=== PATIENT | male | born 1965 | race African-American/Black ===

== ENCOUNTER 2018-01-14 13:50 | Emergency (ER) | payer OTHER ==
[2018-01-14] MEDS ORDERED: NS 0.9% 1000 ML* 1,000 ML IV ONE (14:06)
[2018-01-14] MEDS ORDERED: Ondansetron INJ* 2 MG/ML VIAL IV ONE (14:06)
[2018-01-14 14:28] LABS: ABS Basophils 0 10^3/ul (0-0.2); ABS Eosinophils 0 10^3/ul (0-0.6); ABS Lymphocytes 0.7 10^3/ul (1.0-4.8); ABS Monocytes 0.4 10^3/ul (0-0.8); ABS Neutrophils 5.7 10^3/ul (1.5-7.7); ABS Nucleated RBC 0 10^3/ul; Eosinophil % 0.2 % (0-6); Hematocrit 42 % (42-52); Hemoglobin 14.4 g/dl (14.0-18.0); Lymphocyte % 10.6 % (25-47); Mean Corpuscular HGB Conc 34 g/dl (31-36); Mean Corpuscular Hemoglobin 30 pg (27-31); Mean Corpuscular Volume 88 fL (80-94); Mean Platelet Volume 7.6 um3 (7.4-10.4); Nucleated Red Blood Cells % 0; Platelet Count 317 10^3/ul (150-450); Red Blood Count 4.84 10^6/ul (4.00-5.40); Red Cell Distribution Width 14 % (10.5-15); White Blood Count 6.9 10^3/ul (3.5-10.8)
[2018-01-14 14:55] LABS: EGFR Non-African American 61.9 (>60)
[2018-01-14 15:20] LABS: Urine Appearance Clear; Urine Blood 1+ (Negative); Urine Color Yellow; Urine Ketones Negative (Negative); Urine Protein Negative (Negative); Urine Red Blood Cell 1+(3-5/hpf) (Absent); Urine Specific Gravity 1.013 (1.010-1.030); Urine Urobilinogen Negative (Negative); Urine White Blood Cell Trace(0-5/hpf) (Absent)
--- NOTE | 2018-01-14 15:23 | RAD ---
HISTORY: abdominal pain COMPARISONS: None VIEWS: Frontal supine and upright views of the abdomen. FINDINGS: BOWEL: There is a nonobstructive bowel gas pattern. There is a large amount of stool within the colon. CALCULI: There are no abnormal calculi. BONES AND SOFT TISSUES: There are no osseous abnormalities. OTHER FINDINGS: The lung bases are clear. There is no subphrenic gas. IMPRESSION: NONOBSTRUCTIVE BOWEL GAS PATTERN. LARGE AMOUNT OF STOOL WITHIN THE COLON.
--- NOTE | 2018-01-14 15:26 | ED ---
Abdominal Pain/Male - HPI Summary HPI Summary: This is [facility] Hansen documenting for attending Chase Avilez MD. Patient is a 52 y/o M w/ epigastric abdominal pain. Pain is not reported to radiate. On triage, pain is rated 7/10. Patient states he has been nauseous and has vomited these past two days. He reports fever and dizziness as well. EKG changes were noted at senior care facility, patient received 325 ASA. Patient has past medical history of constipation, HTN, diabetes, HLD, MCTD, gastroparesis, and polymyositis. He reports PSHx for bowl obstruction removal this year. Nothing is reported to aggravate/alleviate Sx. Home medications and allergies are reviewed. - History of Current Complaint Chief Complaint: EDAbdPain Stated Complaint: ABD/CHEST PAIN Time Seen by Provider: 01/14/18 14:01 Hx Obtained From: Patient Onset/Duration: Lasting Days - onset 2 days ago Timing: Constant Severity Currently: Severe Pain Intensity: 7 Pain Scale Used: 0-10 Numeric - 7/10 Location: Epigastric Radiates: No Aggravating Factor(s): Nothing Alleviating Factor(s): Nothing Associated Signs And Symptoms: Positive: Fever, Dizzy, Nausea, Vomiting - Allergies/Home Medications Allergies/Adverse Reactions: Allergies Allergy/AdvReac Type Severity Reaction Status Date / Time No Known Allergies Allergy Verified 01/14/18 13:58 Home Medications: Home Medications Calcium Polycarbophil TAB* [Fibercon TAB*] 1 tab PO BID 01/14/18 [History Confirmed 01/14/18] Cetirizine* [ZyrTEC 10 MG TAB*] 10 mg PO DAILY 01/14/18 [History Confirmed 01/14] Cholecalciferol (Vitamin D3) [Vitamin D3] 1 cap PO DAILY 01/14/18 [History Confirmed 01/14/18] Fluticas/Salmet 115/21 HFA(NF) [Advair HFA 115/21 (NF)] 1 puff INH BID 01/14/18 [History Confirmed 01/14/18] Glucose ORAL* [Glutose*] 1 tube PO SEE INSTRUCTIONS PRN 01/14/18 [History Confirmed 01/14/18] Metoclopramide TAB* [Reglan TAB*] 10 mg PO TID PRN 01/14/18 [History Confirmed 01/14/18] Omeprazole CAP* [Prilosec CAP* 20 MG] 20 mg PO BID 01/14/18 [History Confirmed 01/14/18] Simethicone TAB* [Mylicon TAB*] 1 tab PO TID 01/14/18 [History Confirmed ] raNITIdine HCl [Zantac] 1 tab PO DAILY 01/14/18 [History Confirmed 01/14/18] PMH/Surg Hx/FS Hx/Imm Hx Endocrine/Hematology History: Reports: Hx Diabetes, Other Endocrine/ Hematological Disorders - HLD Cardiovascular History: Reports: Hx Hypertension GI History: Reports: Other GI Disorders - gastroparesis Musculoskeletal History: Reports: Other Musculoskeletal History - polymyositis, MCTD Sensory History: Denies: Hx Legally Blind - Surgical History Surgery Procedure, Year, and Place: bowel obstruction removal, 2018 Infectious Disease History: No Infectious Disease History: Denies: Traveled Outside the [place] in Last 30 Days - Family History Known Family History: Negative: Blood Disorder Review of Systems Positive: Fever Positive: Abdominal Pain - epigastric , Vomiting, Nausea Neurological: Other - dizziness All Other Systems Reviewed And Are Negative: Yes Physical Exam - Summary Physical Exam Summary: VITAL SIGNS: Reviewed. GENERAL: Patient is a well-developed and nourished male who is lying comfortable in the stretcher. Patient is not in any acute respiratory distress. HEAD AND FACE: Normocephalic and atraumatic. EYES: PERRLA, EOMI x 2, No injected conjunctiva. EARS: Hearing grossly intact. Ear canals and tympanic membranes are WNL. MOUTH: Oropharynx within normal limits. NECK: Supple, trachea is midline, no adenopathy, no JVD. CHEST: Symmetric, no tenderness at palpation LUNGS: Clear to auscultation bilaterally. No wheezing or crackles. CVS: RRR, S1 and S2 present, no murmurs or gallops appreciated. ABDOMEN: Soft, non-tender. No signs of distention. Positive bowel sounds in the upper abdomen, lower abdomen has decreased sounds. No rebound no guarding, and no masses palpated. No abdominal bruit or pulsations. EXTREMITIES: FROM in all major joints, no edema, no cyanosis or clubbing. NEURO: Alert and oriented x 3. No acute neurological deficits. Speech is normal. SKIN: Dry and warm Triage Information Reviewed: Yes Vital Signs On Initial Exam: Initial Vitals Temp Pulse Resp BP Pulse Ox 97.9 F 70 14 167/109 100 01/14/18 13:54 01/14/18 13:54 01/14/18 13:54 01/14/18 13:54 01/14/18 13:54 Vital Signs Reviewed: Yes Diagnostics - Vital Signs Vital Signs Temp Pulse Resp BP Pulse Ox 01/14/18 13:54 97.9 F 70 14 167/109 100 - Laboratory Lab Results: Lab Results 01/14/18 01/14/18 01/14/18 Range/Units 14:20 14:20 14:20 WBC 6.9 (3.5-10.8) 10^3/ul RBC 4.84 (4.00-5.40) 10^6/ul Hgb 14.4 (14.0-18.0) g/dl Hct 42 (42-52) % MCV 88 (80-94) fL MCH 30 (27-31) pg MCHC 34 (31-36) g/dl RDW 14 (10.5-15) % Plt Count 317 (150-450) 10^3/ul MPV 7.6 (7.4-10.4) um3 Neut % (Auto) 82.0 (38-83) % Lymph % (Auto) 10.6 L (25-47) % Mercer % (Auto) 6.5 (0-7) % Eos % (Auto) 0.2 (0-6) % Baso % (Auto) 0.7 (0-2) % Absolute Neuts (auto) 5.7 (1.5-7.7) 10^3/ul Absolute Lymphs (auto) 0.7 L (1.0-4.8) 10^3/ul Absolute Monos (auto) 0.4 (0-0.8) 10^3/ul Absolute Eos (auto) 0 (0-0.6) 10^3/ul Absolute Basos (auto) 0 (0-0.2) 10^3/ul Absolute Nucleated RBC 0 10^3/ul Nucleated RBC % 0 Sodium 140 (135-145) mmol/L Potassium 4.3 (3.5-5.0) mmol/L Chloride 105 (101-111) mmol/L Carbon Dioxide 27 (22-32) mmol/L Anion Gap 8 (2-11) mmol/L BUN 15 (6-24) mg/dL Creatinine 1.22 H (0.67-1.17) mg/dL Est GFR ( Amer) 74.9 (>60) Est GFR (Non-Af Amer) 61.9 (>60) BUN/Creatinine Ratio 12.3 (8-20) Glucose 90 (70-100) mg/dL Lactic Acid 1.5 (0.5-2.0) mmol/L Calcium 9.9 (8.6-10.3) mg/dL Magnesium 1.9 (1.9-2.7) mg/dL Total Bilirubin 0.50 (0.2-1.0) mg/dL AST 20 (13-39) U/L ALT 14 (7-52) U/L Alkaline Phosphatase 74 (34-104) U/L C-Reactive Protein 7.91 (<8.01) mg/L B-Natriuretic Peptide ( - 100) pg/mL Total Protein 8.7 (6.4-8.9) g/dL Albumin 4.5 (3.2-5.2) g/dL Globulin 4.2 H (2-4) g/dL Albumin/Globulin Ratio 1.1 (1-3) Lipase 18 (11.0-82.0) U/L Urine Color Urine Appearance Urine pH (5-9) Ur Specific [place] (1.010-1.030) Urine Protein (Negative) Urine Ketones (Negative) Urine Blood (Negative) Urine Nitrate (Negative) Urine Bilirubin (Negative) Urine Urobilinogen (Negative) Ur Leukocyte Esterase (Negative) Urine WBC (Auto) (Absent) Urine RBC (Auto) (Absent) Urine Bacteria (Absent) Urine Glucose (Negative) 01/14/18 01/14/18 Range/Units 14:20 14:42 WBC (3.5-10.8) 10^3/ul RBC (4.00-5.40) 10^6/ul Hgb (14.0-18.0) g/dl Hct (42-52) % MCV (80-94) fL MCH (27-31) pg MCHC (31-36) g/dl RDW (10.5-15) % Plt Count (150-450) 10^3/ul MPV (7.4-10.4) um3 Neut % (Auto) (38-83) % Lymph % (Auto) (25-47) % Mercer % (Auto) (0-7) % Eos % (Auto) (0-6) % Baso % (Auto) (0-2) % Absolute Neuts (auto) (1.5-7.7) 10^3/ul Absolute Lymphs (auto) (1.0-4.8) 10^3/ul Absolute Monos (auto) (0-0.8) 10^3/ul Absolute Eos (auto) (0-0.6) 10^3/ul Absolute Basos (auto) (0-0.2) 10^3/ul Absolute Nucleated RBC 10^3/ul Nucleated RBC % Sodium (135-145) mmol/L Potassium (3.5-5.0) mmol/L Chloride (101-111) mmol/L Carbon Dioxide (22-32) mmol/L Anion Gap (2-11) mmol/L BUN (6-24) mg/dL Creatinine (0.67-1.17) mg/dL Est GFR ( Amer) (>60) Est GFR (Non-Af Amer) (>60) BUN/Creatinine Ratio (8-20) Glucose (70-100) mg/dL Lactic Acid (0.5-2.0) mmol/L Calcium (8.6-10.3) mg/dL Magnesium (1.9-2.7) mg/dL Total Bilirubin (0.2-1.0) mg/dL AST (13-39) U/L ALT (7-52) U/L Alkaline Phosphatase (34-104) U/L C-Reactive Protein (<8.01) mg/L B-Natriuretic Peptide 148 H ( - 100) pg/mL Total Protein (6.4-8.9) g/dL Albumin (3.2-5.2) g/dL Globulin (2-4) g/dL Albumin/Globulin Ratio (1-3) Lipase (11.0-82.0) U/L Urine Color Yellow Urine Appearance Clear Urine pH 5.0 (5-9) Ur Specific [place] 1.013 (1.010-1.030) Urine Protein Negative (Negative) Urine Ketones Negative (Negative) Urine Blood 1+ A (Negative) Urine Nitrate Negative (Negative) Urine Bilirubin Negative (Negative) Urine Urobilinogen Negative (Negative) Ur Leukocyte Esterase Negative (Negative) Urine WBC (Auto) Trace(0-5/hpf) (Absent) Urine RBC (Auto) 1+(3-5/hpf) A (Absent) Urine Bacteria Absent (Absent) Urine Glucose Negative (Negative) Result Diagrams: 01/14/18 14:20 01/14/18 14:20 Lab Statement: Any lab studies that have been ordered have been reviewed, and results considered in the medical decision making process. - Radiology Abdomen X-ray Xray Interpretation: No Acute Changes Radiology Interpretation Completed By: Radiologist - Nonobstructive bowel gas pattern. Large amount of stool within the colon. 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 Bibasilar airspace disease is noted in the lung joyner right worse than left which may represent bibasilar pneumonia. Normal appendix. This report was reviewed by ED physician. - EKG 1446 Cardiac Rate: NL - Rate is 78 BPM EKG Rhythm: Sinus Rhythm ST Segment: Normal - no ST elevations Ectopy: PVCs - multiple EKG Interpretation: RBBB Re-Evaluation - Re-Evaluation First Eval Re-Evaluation Time: 20:00 Comment: Discussed findings with the patient. Abdominal Pain Fem Course/Dx - Course Assessment/Plan: This patient is a 52-year-old male who presents to the emergency room via [facility] with a chief complaint of having nausea vomiting and abdominal pain. As per patient the patient is being having multiple episodes of nausea and vomiting unable to keep anything by mouth. The patient also is having diffuse abdominal pain but worse in the upper abdomen. The patient has past medical history significant for gastroparesis, polymyositis, MCTD, on chronic steroids, and small bowel obstruction. Initially the patient was given IV fluids and Zofran for the nausea and vomiting. Blood test results without any significant abnormality except for creatinine of 1.22, BMP of 148 and urinalysis is negative for UTI. Abdominal x-ray impression by radiology: Non- obstructive bowel gas pattern. Large amount of stool within the colon. Because of the history of the gastroparesis and small bowel obstruction and abdominal surgery I decided to do an abdominopelvic CT. Abdominopelvic CT impression made radiology: Localized dissection of the infrarenal abdominal aorta just above the aortic bifurcation. Right, iliac artery aneurysm measuring up to 1 0.3 cm is noted. I discussed the case with Dr. Bailon vascular neurosurgeon and Dago Vitale he recommends no follow-up with a vascular surgeon at this point. The findings are minimal and not significant. Therefore since there is no abnormal findings except for increased stool in the colon I will recommend for the patient to take MiraLAX, increase the water intake, fruits and vegetables and a follow-up with the primary care physician. Patient will also can take Zofran or Reglan for nausea and vomiting as needed. Patient is hemodnamically stable alert and oriented 3. I discussed all the findings and test results with the patient. Patient was instructed to return to the emergency room immediately if any of the symptoms return or worsens. They were explained the possibility of an early abdominal pathology which was not detected at this time despite the physical exam and testing. They understand and agree. Abdominal exam before discharge: Soft, NT. No signs of distention. BS present. No rebound no guarding, and no masses palpated. Patient is alert and oriented and hemodynamically stable. Patient is to follow up with primary care physician in the next 2 to 3 days. Patient agree and understands. - Diagnoses Differential Diagnosis/HQI/PQRI: Abdominal Aortic Aneurysm, Bowel Obstruction, Constipation, Diverticulitis, Renal Colic, Testicular Torsion, Urinary Tract Infection Provider Diagnoses: Acute abdominal pain, Nausea & vomiting - Provider Notifications Discussed Care Of Patient With: Urban Bailon Time Discussed With Above Provider: 19:38 Instructed by Provider To: Other - Dr. Bailon from [facility] was consulted at 19:38. He recommends no follow-up with a vascular surgeon at this point. The findings are minimal and not significant. Discharge - Sign-Out/Discharge Documenting (check all that apply): Patient Departure - Discharge Plan Condition: Stable Disposition: [facility]/COURT Patient Education Materials: Acute Nausea and Vomiting (ED), Acute Abdominal Pain (ED) Referrals: Trinh HUNT,Flavio Leiva [Primary Care Provider] - 3 Days Additional Instructions: Return to ED for any new or worsening symptoms.
[2018-01-14] MEDS ORDERED: Iodixanol* (CONTRAST) 320 MG/ML 100 ML SDV IV ONE (15:38)
--- NOTE | 2018-01-14 18:07 | RAD ---
Indication: Abdominal pain. Contrast: Administered 125.1 ml of VISAPAQUE 320 mg/ml CT of the abdomen and pelvis was performed after oral and IV contrast administration. Coronal and sagittal reconstructed images were obtained. Lung bases demonstrate right basilar airspace disease suggestive of pneumonia. There may be some infiltrate in the left base consistent with infiltrate as well. The heart demonstrates no pericardial effusion. Liver is normal in size. No focal lesions or intrahepatic duct dilatation is noted. The gallbladder demonstrates no calcified gallstones. No pericholecystic fluid or wall thickening is identified. The spleen is normal in size. The pancreas demonstrates no mass or pancreatic duct dilatation. The common duct is not dilated. No adrenal lesions are noted. The kidneys demonstrate symmetric nephrograms without hydronephrosis. No retroperitoneal lymphadenopathy is noted. No dilated loops of bowel are noted. CT of the pelvis demonstrates focal localized dissection in the infrarenal abdominal aorta just above aortic bifurcation. This extends into mild aneurysmal dilatation of the right common iliac artery measuring up to 13 mm. The remainder of the external iliac artery are otherwise unremarkable. No dilated loops of bowel are noted. The colon is filled with stool. The appendix is visualized and is unremarkable. The urinary bladder is unremarkable. The prostate and seminal vesicles are unremarkable. No evidence of bowel obstruction is noted. Degenerative disc disease at L4-L5 is noted. No fracture is noted. 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 Bibasilar airspace disease is noted in the lung joyner right worse than left which may represent bibasilar pneumonia. Normal appendix.
[2018-01-14 20:04] VITALS: BP 176/112
== END 2018-01-14 20:09 ==
LOC: ED 13:50
DX: R10.13 Epigastric pain (principal); R11.2 Nausea with vomiting, unspecified; I72.3 Aneurysm of iliac artery; I45.10 Unspecified right bundle-branch block; I10 Essential (primary) hypertension; E11.9 Type 2 diabetes mellitus without complications; E78.5 Hyperlipidemia, unspecified; K31.84 Gastroparesis; M33.20 Polymyositis, organ involvement unspecified; M35.1 Other overlap syndromes
CPT/HCPCS: 36415; 74019; 74177; 80053; 81003; 81015; 83605; 83690; 83735; 83880; 85025; 86140; 87086; 93005; 96361; 96374; 99284; J2405; Q9967

== ENCOUNTER 2018-01-15 16:21 | Observation (INO) | payer OTHER ==
[2018-01-15] MEDS ORDERED: NS 0.9% 1000 ML* 1,000 ML IV ONE (16:23)
--- NOTE | 2018-01-15 16:32 | ED ---
HPI Chest Pain - HPI Summary HPI Summary: This is [facility] documenting for attending Gunnar Avilez MD. Pt is a 52 y/o M c/o CP onset. Pain is rated a 7/10 and is described as pressure. Assoc Sx: Nausea, Diaphoresis, CP. Denies: abd pain, SOB, vomiting. Patient was seen yesterday for abdominal pain and was worked up but was found to be (-). - History of Current Complaint Time Seen by Provider: 01/15/18 16:23 Hx Obtained From: Patient, EMS Current Severity: Moderate Pain Intensity: 7 Pain Scale Used: 0-10 Numeric Chest Pain Location: Mid Sternal Chest Pain Radiates: No Character: Pressure/Squeezing - pressure Associated Signs and Symptoms: Positive: Chest Pain, Diaphoresis, Nausea. Negative: Shortness of Breath, Abdominal Pain, Vomiting - Allergy/Home Medications Allergies/Adverse Reactions: Allergies Allergy/AdvReac Type Severity Reaction Status Date / Time No Known Allergies Allergy Verified 01/14/18 13:58 PMH/Surg Hx/FS Hx/Imm Hx Endocrine/Hematology History: Reports: Hx Diabetes, Other Endocrine/ Hematological Disorders - HLD Cardiovascular History: Reports: Hx Hypertension GI History: Reports: Other GI Disorders - gastroparesis Musculoskeletal History: Reports: Other Musculoskeletal History - polymyositis, MCTD Sensory History: Denies: Hx Legally Blind Opthamlomology History: Denies: Hx Legally Blind - Surgical History Surgery Procedure, Year, and Place: bowel obstruction removal, 2018 - Family History Known Family History: Negative: Blood Disorder - Social History Occupation: Unemployed Lives: [facility] Alcohol Use: None Substance Use Type: Reports: None Smoking Status (MU): Never Smoked Tobacco Review of Systems Positive: Skin Diaphoresis Positive: Chest Pain - pressure Negative: Shortness Of Breath Positive: Nausea. Negative: Abdominal Pain, Vomiting All Other Systems Reviewed And Are Negative: Yes Physical Exam - Summary Physical Exam Summary: Physical Exam Summary: VITAL SIGNS: Reviewed. GENERAL: Patient is a well-developed and nourished male who is lying comfortable in the stretcher. Patient is not in any acute respiratory distress. HEAD AND FACE: Normocephalic and atraumatic. EYES: PERRLA, EOMI x 2, No injected conjunctiva. EARS: Hearing grossly intact. Ear canals and tympanic membranes are WNL. MOUTH: Oropharynx within normal limits. NECK: Supple, trachea is midline, no adenopathy, no JVD. CHEST: Symmetric, no tenderness at palpation LUNGS: Clear to auscultation bilaterally. No wheezing or crackles. CVS: RRR, S1 and S2 present, no murmurs or gallops appreciated. ABDOMEN: Soft, non-tender. No signs of distention. Positive bowel sounds in the upper abdomen, lower abdomen has decreased sounds. No rebound no guarding, and no masses palpated. No abdominal bruit or pulsations. EXTREMITIES: FROM in all major joints, no edema, no cyanosis or clubbing. NEURO: Alert and oriented x 3. No acute neurological deficits. Speech is normal. SKIN: Dry and warm Triage Information Reviewed: Yes Vital Signs Reviewed: Yes Diagnostics - Laboratory Result Diagrams: 01/15/18 16:45 01/15/18 16:45 Lab Statement: Any lab studies that have been ordered have been reviewed, and results considered in the medical decision making process. - Radiology CXR Xray Interpretation: Positive (See Comments) - IMPRESSION: Linear densities at the bilateral lung bases could be due to atelectasis or early interstitial lung disease. Radiology Interpretation Completed By: Radiologist - Provider has reviewed report - EKG 1650 Cardiac Rate: NL - 71 bpm Ectopy: PVCs EKG Interpretation: 71 bpm w sinus arrhythmia, with RBBB and PVC's Chest Pain Course/Dx - Course Assessment/Plan: This patient is a 52-year-old male who presents to the emergency room after he was transferred from [address] [place] [address] with a chief complaint of chest pressure, diaphoresis, nausea and vomiting. The patient was seen yesterday in the emergency department for abdominal pain. Today he is complaining of chest pressure. Patient has past medical history of constipation, HTN, diabetes, HLD, MCTD, gastroparesis, and polymyositis. He reports PSHx for bowel obstruction. Nothing is reported to aggravate/alleviate Sx. Home medications and allergies are reviewed. Blood test results without any significant abnormality except for slight decrease a hemoglobin and hematocrit. Troponin is 0.08, BNP is 178. Urinalysis is negative for UTI. Chest x-ray impression: linear densities at the hilar lung base could be due to atelectasis or any interstitial lung disease. In the ER course the patient was given aspirin, nitroglycerin and Lopressor and his symptoms improved. At this point I discussed the case with and Dr. Rae was the kalsominer on-call and he will consult for this patient. I also discussed the case with Dr. Mckeon from the hospitalist services who will be admitting the patient to the telemetry for further workup and management. The patient is hemodynamically stable alert and oriented 3 and at this time the patient is chest pain-free. - Chest Pain Differential Diagnosis/HQI/PQRI: Acute CT, ACS, Angina, CHF, Chest Wall, GI Disease, Lower Respiratory Infection - Diagnoses Provider Diagnoses: Chest pain, Elevated troponin - Provider Notifications Discussed Care Of Patient With: Stew Rae - Cardiology Time Discussed With Above Provider: 15:00 Instructed by Provider To: Other - Provider consulted with Dr. Rae from Cardiology. He will consult for the patient. Discharge - Sign-Out/Discharge Documenting (check all that apply): Patient Departure - Discharge Plan Condition: Stable Disposition: ADMITTED TO [facility] Referrals: Trinh HUNT,Flavio Leiva [Primary Care Provider] - - Billing Disposition and Condition Condition: STABLE Disposition: Admitted to [facility]
[2018-01-15] MEDS ORDERED: Aspirin TAB* 325 MG PO ONE (16:53)
[2018-01-15] MEDS ORDERED: Metoprolol Tartrate TAB* 25 MG PO ONE (16:53)
[2018-01-15 16:54] LABS: ABS Basophils 0 10^3/ul (0-0.2); ABS Eosinophils 0 10^3/ul (0-0.6); ABS Lymphocytes 0.9 10^3/ul (1.0-4.8); ABS Monocytes 0.6 10^3/ul (0-0.8); ABS Neutrophils 4.1 10^3/ul (1.5-7.7); ABS Nucleated RBC 0 10^3/ul; Eosinophil % 0.5 % (0-6); Hematocrit 39 % (42-52); Hemoglobin 13.4 g/dl (14.0-18.0); Lymphocyte % 16.6 % (25-47); Mean Corpuscular HGB Conc 34 g/dl (31-36); Mean Corpuscular Hemoglobin 30 pg (27-31); Mean Corpuscular Volume 87 fL (80-94); Mean Platelet Volume 7.6 um3 (7.4-10.4); Nucleated Red Blood Cells % 0; Platelet Count 307 10^3/ul (150-450); Red Blood Count 4.46 10^6/ul (4.00-5.40); Red Cell Distribution Width 15 % (10.5-15); White Blood Count 5.6 10^3/ul (3.5-10.8)
[2018-01-15] MEDS ORDERED: Nitroglycerin 2% OINT* 1 GM PAK TOPICAL ONE (16:54)
[2018-01-15] MEDS ORDERED: Nitroglycerin TAB 0.4 MG* 0.4 MG TAB SL ONE (16:54)
[2018-01-15 17:14] LABS: EGFR Non-African American 66.3 (>60)
--- NOTE | 2018-01-15 17:24 | RAD ---
INDICATION: Chest pain COMPARISON: CT the abdomen and pelvis dated January 14, 2018 TECHNIQUE: Single AP portable view of the chest was obtained. FINDINGS: Image quality is compromised due to the relative inferiority of a portable chest x-ray. The heart and mediastinum exhibit normal size and contour. At the lung bases there is intralobular thickening and faint linear densities that appear to correspond to the interstitial density seen on the previous day CT. More superiorly the lungs are adequately aerated. Visualized bones are normal for the patient's age. IMPRESSION: Linear densities at the bilateral lung bases could be due to atelectasis or early interstitial lung disease.
[2018-01-15 17:38] LABS: Urine Appearance Clear; Urine Blood 1+ (Negative); Urine Color Yellow; Urine Ketones Negative (Negative); Urine Protein Negative (Negative); Urine Red Blood Cell Trace(0-2/hpf) (Absent); Urine Specific Gravity 1.009 (1.010-1.030); Urine Urobilinogen Negative (Negative); Urine White Blood Cell Trace(0-5/hpf) (Absent)
[2018-01-15] MEDS ORDERED: Ondansetron INJ* 2 MG/ML VIAL IV PRN (19:43)
[2018-01-15] MEDS ORDERED: Albuterol 2.5 MG/3 ML NEB.SOL* (0.083%) INH PRN (19:43)
[2018-01-15] MEDS ORDERED: Acetaminophen TAB* 325 MG PO PRN (19:43)
[2018-01-15] MEDS ORDERED: Morphine INJ* 2 MG/ML 1 ML SYRINGE (TWO MG - NEW SYRINGE VERSION) IV PRN (19:43)
[2018-01-15] MEDS ORDERED: Magnesium Hydroxide LIQ* 30 ML UDC PO PRN (19:43)
[2018-01-15] MEDS ORDERED: Al Hydrox/Mg Hydrox/Simet LIQ* 30 ML UDC PO PRN (19:43)
[2018-01-15] MEDS ORDERED: NS 0.9% 1000 ML* 1,000 ML IV SCH (19:45)
[2018-01-15] MEDS ORDERED: Metoclopramide TAB* 10 MG PO PRN (19:49)
[2018-01-15] MEDS ORDERED: Nitroglycerin TAB 0.4 MG* 0.4 MG TAB SL PRN (19:56)
[2018-01-15] MEDS: Omeprazole CAP* 20 MG PO SCH (21:52)
[2018-01-15] MEDS: Mometasone/Formoter 100/5 MDI INH SCH (22:34)
--- NOTE | 2018-01-16 01:35 | HP ---
ADMISSION HISTORY AND PHYSICAL: DATE OF ADMISSION/SURGERY: 01/15/18 PRIMARY CARE PHYSICIAN: Gladys Avila DO from [facility] ATTENDING HOSPITALIST: Bushra Soni MD * (DICTATED BY KEIRA DE LA ROSA) CHIEF COMPLAINT: Chest pain. HISTORY OF PRESENT ILLNESS: Mr. Saleem is a 52-year-old gentleman who carries a past medical history significant for acid reflux disease, history of polio myositis, and history of bowel obstruction, for which he had surgery at [facility] approximately 2 years ago, who presented to the emergency room for the second time today with complaints of chest pain. The patient initially presented yesterday with complaints of epigastric pain. He has history of peptic ulcer disease, acid reflux as well as bowel surgery that was done 2 years ago. He reports associated nausea, but that eventually resolved. He had laboratory workup and a CT scan of the abdomen and pelvis that revealed no significant abnormality for which he was discharged back to [facility] yesterday. Today, he returned to the emergency room with complaints of substernal chest pain that does not radiate anywhere else with associated perfuse diaphoresis, and nausea. He reports that pain is different than his initial presentation yesterday. He reports that pain started while he was resting and denied any pain with exertion, shortness of breath, or wheezing. He does carry history of asthma and seasonal allergies as well for which he takes inhalers and Zyrtec. He had laboratory workup in the emergency room today that revealed normal CBC, but noted to have elevated troponin at [facility] earlier today with a value of 0.09. His troponin was repeated in the emergency room 6 hours later and was noted to be slightly declining at 0.08. A third troponin was drawn just shortly before admission and the results are pending at this time. He also had an EKG done that revealed new onset of right bundle-branch block and questioned left axis deviation. There were no definite ST changes, but given his age presentation, we were asked to see the patient for further evaluation and to consider admission to telemetry to rule out acute coronary syndrome. PAST MEDICAL HISTORY: As mentioned above, significant for: 1. Asthma and seasonal allergies. 2. GERD. 3. History of bowel obstruction in the past. 4. Polio myositis for which he was on prednisone for a period of time. PAST SURGICAL HISTORY: Significant for exploratory laparotomy with probable lysis of adhesion back in 2016, at [facility], I do not have an operative note available, however, the patient tells me that there was no bowel resection done. He also had a left hip surgery in the remote past. CURRENT MEDICATIONS: His medication list includes: 1. Calcium tablets 625 mg 1 p.o. b.i.d. 2. Zyrtec 10 mg p.o. daily. 3. Vitamin D3 1 cap 1000 units p.o. daily. 4. Advair HFA 115/21 one puff MDI inhaled b.i.d. 5. Glucose 15 g tube as needed for hypoglycemia. 6. Reglan 10 mg p.o. t.i.d. 7. Omeprazole 20 mg p.o. b.i.d. 8. Zantac 150 mg p.o. daily. 9. Simethicone 80 mg chewable 1 tablet p.o. t.i.d. ALLERGIES: He has no known drug allergies. SOCIAL HISTORY: The patient is an inmate who resides at [facility]. He is and has a daughter that lives with his ex - in [facility]. He listed his mom, Tahlia Saleem, as his healthcare proxy carrier and that he wishes to be a full code. He is a non-smoker who has never drink alcohol and denies illicit drug use. FAMILY HISTORY: He denies any family history of hypertension or coronary artery disease. REVIEW OF SYSTEMS: See HPI, otherwise 14-point review of systems were evaluated , were essentially negative. PHYSICAL EXAMINATION GENERAL: He is a healthy-appearing, middle aged gentleman in no acute distress or discomfort at the time of admission. VITAL SIGNS: Revealed blood pressure of 154/98, heart rate of 67, temperature of 98.4, respirations of 18 with O2 sat of 100% on room air. HEENT: Head is normocephalic, atraumatic. Sclerae anicteric. PERRLA. EOM's intact. Oropharynx is pink and moist. NECK: Supple. Trachea midline. No cervical adenopathy, thyromegaly, or JVD. LUNGS: Clear to auscultation bilaterally. HEART: Regular rate and rhythm. Normal S1 and S2 without rubs, murmurs, or gallops. BACK: Normal curvature, no CVA tenderness. ABDOMEN: Soft, nontender, and nondistended. There is a midline scar from prior surgery noted with no evidence of incisional hernia, masses, or hepatosplenomegaly. EXTREMITIES: Without cyanosis, clubbing, or edema. RECTAL EXAM: Deferred at this time. NEUROLOGIC: Grossly intact. He is awake, alert, and oriented x3. DIAGNOSTIC STUDIES/LAB DATA: CBC with white count of 5600, hemoglobin 13.4, hematocrit 39, and platelets 307. His D-dimer was less than 200. Chemistry panel with sodium of 140, potassium 4.2, chloride 104, CO2 28, BUN of 12 and creatinine of 1.15. His lactic acid was 1.6. LFTs within normal limits. Troponin as mentioned above, first draw earlier today at 0.09 and second was 0.18, third draw is pending at this time. BNP slightly elevated at 179. TSH is 0.98. ACCESSORY DIAGNOSTIC DATA: EKG revealed sinus arrhythmia with ventricular rate in mid 60s as well as multiple premature complexes, also evidence of right bundle- branch block, possible axis deviation to the left. There were no ST changes noted. Chest x-ray with linear densities to bilateral lung bases, likely atelectasis or early interstitial lung disease. There was no evidence of acute cardiopulmonary disease. IMPRESSION: A 52-year-old gentleman with past medical history significant for polio myositis, asthma, and seasonal allergies, who presented to the emergency room for the second day in a row with complaints of substernal chest pain with associated nausea and diaphoresis and found to have EKG changes as well as elevated troponin for which he will be admitted to telemetry unit for the following. ASSESSMENT AND PLAN: 1. Chest pain. The patient will be observed at the telemetry unit overnight. I went on and discussed with him the rationale behind his admission. He continued to have elevated troponin, however, it appears to be trending down and will continue to evaluate him for this. We will provide supplemental oxygen as needed; however, he denies any shortness of breath and has maintained good oxygen saturation. We also have noticed some occasional drop in his QRS complexes, however, there was no significant evidence of second degree heart block; however, I will obtain a repeat EKG tonight and we will repeat it tomorrow morning. I have reviewed the emergency room provider note and it appears like he has already contacted Dr. Rae for consultation and made arrangements for him to be seen tomorrow. The patient has never been diagnosed with any hypertension and never had his cholesterol checked. However, I feel he carries more risk factors for coronary artery disease for which we will proceed with nuclear stress test in the morning and I will keep him n.p.o. after midnight. I will also add his lipid panel to his troponin and baseline labs in the morning. 2. History of asthma and seasonal allergies. He appears to be stable from respiratory standpoint with no evidence of exacerbation. I will maintain him on his inhalers and add albuterol nebulizer as needed if he gets short of breath and continue his Zyrtec. 3. History of polio myositis, appears to be stable at this time. 4. History of gastroparesis and small bowel obstruction. Again, CT scan done yesterday in the ED revealed no evidence of bowel obstruction and the patient continued to have bowel movements, most recently this morning. I will keep him on his Reglan regimen and evaluate him for any possible abdominal pain, which has been not an issue today. 5. Gastroesophageal reflux disease. I will maintain him on his Omeprazole and Zantac as prescribed to him at the correctional facility. 6. DVT prophylaxis. The patient scored 2 points making him a moderate risk for deep venous thrombosis and I will provide him with SCD for the time being. 7. Code status. He is a full code. 8. Disposition. Admits to telemetry for close observation, repeat EKG and troponin, proceed with nuclear stress test in the morning to rule out acute coronary syndrome. TIME SPENT: Approximately 60 minutes was spent admitting this patient, was greater than 50% taking history and performing physical exam. I went on and discussed the case with Dr. Bushra Soni, who agreed to a plan of care. KEIRA DE LA ROSA [id number]/[facility] #: [id number] LIV
[2018-01-16] MEDS: Mometasone/Formoter 100/5 MDI INH SCH ×2 (07:53→20:09)
[2018-01-16] MEDS: Omeprazole CAP* 20 MG PO SCH (08:06)
[2018-01-16] MEDS ORDERED: Cetirizine* 10 MG TAB PO SCH (09:00)
[2018-01-16] MEDS ORDERED: Famotidine TAB* 20 MG PO SCH (09:00)
[2018-01-16 10:02] LABS: EGFR Non-African American 66.3 (>60)
[2018-01-16 10:05] LABS: ABS Basophils 0 10^3/ul (0-0.2); ABS Eosinophils 0 10^3/ul (0-0.6); ABS Lymphocytes 1.5 10^3/ul (1.0-4.8); ABS Monocytes 0.7 10^3/ul (0-0.8); ABS Neutrophils 2.6 10^3/ul (1.5-7.7); ABS Nucleated RBC 0 10^3/ul; Hematocrit 39 % (42-52); Hemoglobin 13.5 g/dl (14.0-18.0); Lymphocyte % 30.5 % (25-47); Mean Corpuscular HGB Conc 34 g/dl (31-36); Mean Corpuscular Hemoglobin 30 pg (27-31); Mean Corpuscular Volume 88 fL (80-94); Mean Platelet Volume 7.5 um3 (7.4-10.4); Nucleated Red Blood Cells % 0.1; Platelet Count 278 10^3/ul (150-450); Red Cell Distribution Width 14 % (10.5-15); White Blood Count 4.9 10^3/ul (3.5-10.8)
[2018-01-16] MEDS ORDERED: Regadenoson* 0.4 MG/5 ML SYRINGE ONE (13:10)
--- NOTE | 2018-01-16 14:17 | RAD ---
Edited for charges. INDICATION: Chest pain. COMPARISON: There are no prior studies available for comparison. Technique: A single day myocardial perfusion stress study was performed. Initially the resting study was performed. The patient was given an intravenous injection of 10.6 mCi of technetium 99m tetrofosmin and and the heart was imaged in multiple projections. The patient returned later in the day and under the direction of Dr. Mckenna, the patient was given intervenous injection of Lexiscan. Subsequently the patient was given intravenous injection of 25.2 mCi of technetium 99m tetrofosmin and the heart was imaged in multiple projections. The patient was unable to be positioned for the attenuation corrected images limiting the study. Images were reconstructed in the axial, sagittal and coronal planes and in a 3- D format. FINDINGS: There appears to be hypokinesis in the septum. The left ventricular ejection fraction is calculated to be 61%. The transiting ischemic dilatation ratio is abnormally elevated at 1.32 raising the possibility of multivessel coronary artery disease. No significant focal perfusion defects are seen on the post pharmacologic stress images. There is a large area of decreased activity in the inferior wall on the resting images. The results of this exam were discussed with the referring clinician. IMPRESSION: ELEVATED TRANSIENT ISCHEMIC DILATATION RATIO SUGGESTING THE POSSIBILITY OF MULTIVESSEL CORONARY ARTERY DISEASE. NO FOCAL MYOCARDIAL PERFUSION DEFECTS ARE SEEN AFTER PHARMACOLOGIC STRESS. MTDD
[2018-01-16 15:37] VITALS: BP 146/86
--- NOTE | 2018-01-16 16:29 | PN ---
Subjective Date of Service: 01/16/18 Interval History: see transfer note Objective Active Medications: Acetaminophen (Tylenol Tab*) 650 mg PO Q4H PRN PRN Reason: FEVER/PAIN Al Hydrox/Mg Hydrox/Simethicone (Maalox Plus*) 30 ml PO Q6H PRN PRN Reason: INDIGESTION Albuterol (Ventolin 2.5 Mg/3 Ml Neb.Cassandra*) 2.5 mg INH [id number] AWAKE PRN PRN Reason: sob/wheezing Cetirizine HCl (Zyrtec*) 10 mg PO DAILY [facility]; Protocol Last Admin: 01/16/18 08:06 Dose: 10 mg Famotidine (Pepcid Tab*) 20 mg PO DAILY [facility]; Protocol Last Admin: 01/16/18 08:06 Dose: 20 mg Magnesium Hydroxide (Milk Of Magnmindi Liq*) 30 ml PO Q4H PRN PRN Reason: CONSTIPATION Metoclopramide HCl (Reglan Tab*) 10 mg PO TID PRN PRN Reason: NAUSEA/VOMITING Mometasone Furoate/Formoterol Fumar (Dulera 100/5 Mdi*) 2 puff INH BID [facility] Last Admin: 01/16/18 07:53 Dose: 2 puff Morphine Sulfate (Morphine Inj ((Syringe))*) 2 mg IV Q4H PRN PRN Reason: PAIN - MILD Nitroglycerin (Nitroglycerin Tab 0.4 Mg*) 0.4 mg SL Q5M PRN PRN Reason: ANGINA Last Admin: 01/16/18 03:38 Dose: 0.4 mg Omeprazole (Prilosec Cap*) 20 mg PO BID [facility] Last Admin: 01/16/18 08:06 Dose: 20 mg Ondansetron HCl (Zofran Inj*) 4 mg IV Q4H PRN PRN Reason: NAUSEA/VOMITING Vital Signs - 8 hr 01/16/18 01/16/18 11:30 15:24 Temperature 99.0 F 98.2 F Pulse Rate 70 69 Respiratory 16 Rate Blood Pressure 152/79 146/86 (mmHg) O2 Sat by Pulse 100 100 Oximetry Oxygen Devices in Use Now: None Appearance: 52 yo chronically ill male A+O x3 in NAD - poor historian Eyes: No Scleral Icterus, PERRLA Neck: NL Appearance and Movements; NL JVP Respiratory: Symmetrical Chest Expansion and Respiratory Effort, Clear to Auscultation Cardiovascular: NL Sounds; No Murmurs; No JVD, RRR, No Edema Abdominal: NL Sounds; No Tenderness; No Distention Extremities: No Edema, No Clubbing, Cyanosis Skin: No Rash or Ulcers, No Nodules or Sclerosis Neurological: Alert and Oriented x 3 Lines/Tubes/Other Access: Clean, Dry and Intact Peripheral IV Nutrition: Taking PO's Result Diagrams: 01/16/18 09:50 01/16/18 08:50 Assess/Plan/Problems-Billing Assessment: 52 yo male with PMH of polio myositis, asthma, gastroparesis, seasonal allergies who presented to the ER with c/o chest pain with associated nausea and diaphoresis (presented the day before with abdominal pain found to have a aortic dissection) - Patient Problems (1) Chest pain Comment: - No evidence of ACS - cardiac nuclear stress test (chemical) - radiologist read abnormal scan however Dr. Yeung read the images and states it is a normal stress test. Troponins stable - 0.08, 0.07, 0.07, 0.08 EKG - NSR, normal interval, RBB, LAD, [id number] PAC, several non-conducted P waves that appear to be from sinus node - appreciate cardiology consult - concern for conduction system disease - please see Dr. Rodriguez consulted note from 01/16/2018 (2) Gastroparesis Comment: continue reglan (3) GERD (gastroesophageal reflux disease) Comment: PPI Status and Disposition: Please see transfer summary for full details.
[2018-01-16] MEDS ORDERED: amLODIPine TAB* 5 MG PO ONE (16:49)
--- NOTE | 2018-01-16 17:01 | CONSULT ---
Subjective Date of Service: 01/16/18 Interval History: Admission Date: 01/15/18 Consult Date 01/16/2018 PRIMARY CARE PHYSICIAN: Gladys Avila DO from [facility]: Hospitalist CHIEF COMPLAINT: GI symptom, sharp lower chest pain Reason for consult: Same, abnormal EKG HISTORY OF PRESENT ILLNESS: Mr. Saleem is a 52-year-old incarcerated man with a history of MTCD/polymyositis followed at [facility]. He tells me about 2 years ago abnormalities of his heart were detected and felt possibly related to the connective tissue disease. They were concerned about him having surgery but he did have surgery and tells me has had no further evaluation cardiac canchola since then. He had been on on chronic prednisone He tells me he uses a wheelchair and inhaler due to exertional dyspnea and passing out. He was admitted with sweating, eye swelling and vomiting which he states was prior flare symptoms. Also with sharp intermittent epigastric/lower costal pain. He states BP has been elevated last few weeks but ok prior to that. PAST MEDICAL HISTORY: A 1. Asthma and seasonal allergies. 2. GERD. 3. History of bowel obstruction in the past. 4. 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 It appears there is GI, Pulmonary, and ? cardiac involvement (no records available) PAST SURGICAL HISTORY: Abdominal surgery 2016 He also had a left hip surgery in the remote past. ALLERGIES: He has no known drug allergies. SOCIAL HISTORY: The patient is an inmate who resides at [facility]. He is and has a daughter that lives with his ex- in [facility]. He listed his mom, Thalia Saleem, as his healthcare proxy carrier and that he wishes to be a full code. He is a non-smoker who has never drink alcohol and denies illicit drug use. FAMILY HISTORY: He denies any family history of hypertension or coronary artery disease. Medications Active Medications: Acetaminophen (Tylenol Tab*) 650 mg PO Q4H PRN PRN Reason: FEVER/PAIN Al Hydrox/Mg Hydrox/Simethicone (Maalox Plus*) 30 ml PO Q6H PRN PRN Reason: INDIGESTION Albuterol (Ventolin 2.5 Mg/3 Ml Neb.Cassandra*) 2.5 mg INH [id number] AWAKE PRN PRN Reason: sob/wheezing Amlodipine Besylate (Norvasc Tab*) 10 mg PO ONCE ONE Stop: 01/16/18 16:50 Cetirizine HCl (Zyrtec*) 10 mg PO DAILY [facility]; Protocol Last Admin: 01/16/18 08:06 Dose: 10 mg Famotidine (Pepcid Tab*) 20 mg PO DAILY [facility]; Protocol Last Admin: 01/16/18 08:06 Dose: 20 mg Magnesium Hydroxide (Milk Of Magnesia Liq*) 30 ml PO Q4H PRN PRN Reason: CONSTIPATION Metoclopramide HCl (Reglan Tab*) 10 mg PO TID PRN PRN Reason: NAUSEA/VOMITING Mometasone Furoate/Formoterol Fumar (Dulera 100/5 Mdi*) 2 puff INH BID [facility] Last Admin: 01/16/18 07:53 Dose: 2 puff Morphine Sulfate (Morphine Inj ((Syringe))*) 2 mg IV Q4H PRN PRN Reason: PAIN - MILD Nitroglycerin (Nitroglycerin Tab 0.4 Mg*) 0.4 mg SL Q5M PRN PRN Reason: ANGINA Last Admin: 01/16/18 03:38 Dose: 0.4 mg Omeprazole (Prilosec Cap*) 20 mg PO BID [facility] Last Admin: 01/16/18 08:06 Dose: 20 mg Ondansetron HCl (Zofran Inj*) 4 mg IV Q4H PRN PRN Reason: NAUSEA/VOMITING Home Medications: Calcium Polycarbophil TAB* [Fibercon TAB*] 1 tab PO BID 01/14/18 [History Confirmed 01/15/18] Cetirizine* [ZyrTEC 10 MG TAB*] 10 mg PO DAILY 01/14/18 [History Confirmed 01/15] Cholecalciferol (Vitamin D3) [Vitamin D3] 1 cap PO DAILY 01/14/18 [History Confirmed 01/15/18] Fluticas/Salmet 115/21 HFA(NF) [Advair HFA 115/21 (NF)] 1 puff INH BID 01/14/18 [History Confirmed 01/15/18] Glucose ORAL* [Glutose*] 1 tube PO SEE INSTRUCTIONS PRN 01/14/18 [History Confirmed 01/15/18] Metoclopramide TAB* [Reglan TAB*] 10 mg PO TID PRN 01/14/18 [History Confirmed 01/15/18] Omeprazole CAP* [Prilosec CAP* 20 MG] 20 mg PO BID 01/14/18 [History Confirmed 01/15/18] Simethicone TAB* [Mylicon TAB*] 1 tab PO TID 01/14/18 [History Confirmed ] raNITIdine HCl [Zantac] 1 tab PO DAILY 01/14/18 [History Confirmed 01/15/18] Review of Systems - Measurements Intake and Output: Intake and Output Last 24 Hours 01/14/18 01/15/18 01/16/18 01/17/18 06:59 06:59 06:59 06:59 Intake Total 1440 990 Output Total 325 400 Balance 1115 590 Weight 212 lb 3.2 oz Intake: IV Fluids 1000 990 Oral 440 0 Output: Urine 325 400 Other: # Bowel Movements 0 0 - Review of Systems Constitutional Symptoms: Positive: Weakness, Fatigue Dermatology: Negative: Rash, Skin Lesions HEENT: Negative: Change in Hearing, Vertigo Eyes: Negative: Change in Vision, Double Vision Thyroid: Negative: Constipation, Palpitations Pulmonary: Positive: Shortness of Breath Negative: Respiratory Distress Cardiology: Positive: Chest Pain, Shortness of Breath, Syncope Negative: Palpitations, Swelling of Ankles, Peripheral Vascular Dis, Edema, Faintness, Claudication, Paroxysmal Nocturnal Dyspnea, Orthopnea Gastroenterology: Positive: Abdominal Pain, Nausea, Vomiting Negative: Blood in Stools, Change in Bowel Habits, Haematemesis Genital - Urinary: Negative: Dysuria, Hematuria Musculoskeletal: Negative: Joint Pain, Joint Stiffness Endocrinology: Negative: Obesity, Diabetes, Polydipsia, Polyuria Hematologic/Lymphatic: Negative: Use of Anticoagulant, Use of Antiplatelet Drugs Neurology: Negative: Diplopia, Dizziness, Change in Speech, Change in Sphincter Function Psychiatry: Negative: Unusual Anxiety, Suicidal Ideation Allergic/Immunologic: Positive: Immunocompromise Negative: Hx HIV Review of Systems Statement: All other review of systems negative, unless stated above. Objective Vital Signs: Temp Pulse Resp BP Pulse Ox 98.2 F 69 16 146/86 100 01/16/18 15:24 01/16/18 15:24 01/16/18 15:24 01/16/18 15:24 01/16/18 15:24 Oxygen Devices in Use Now: None Appearance: nad, pleasant Neck: NL Appearance and Movements; NL JVP, Trachea Midline Respiratory: Symmetrical Chest Expansion and Respiratory Effort, Clear to Auscultation Cardiovascular: NL Sounds; No Murmurs; No JVD, RRR, No Edema Abdominal: NL Sounds; No Tenderness; No Distention Extremities: No Edema Skin: No Rash or Ulcers Neurological: Alert and Oriented x 3 Laboratory Results: 01/16/18 09:50 01/16/18 08:50 Total Bilirubin 0.40 mg/dL (0.2-1.0) 01/15/18 16:45 AST 17 U/L (13-39) 01/15/18 16:45 ALT 12 U/L (7-52) 01/15/18 16:45 Alkaline Phosphatase 65 U/L (34-104) 01/15/18 16:45 CK-MB (CK-2) 5.6 ng/mL (0.6-6.3) 01/15/18 16:45 B-Natriuretic Peptide 179 pg/mL (-100) H 01/15/18 16:45 Total Protein 7.8 g/dL (6.4-8.9) 01/15/18 16:45 Albumin 4.0 g/dL (3.2-5.2) 01/15/18 16:45 Globulin 3.8 g/dL (2-4) 01/15/18 16:45 Albumin/Globulin Ratio 1.1 (1-3) 01/15/18 16:45 Triglycerides 158 mg/dL 01/16/18 08:50 Cholesterol 211 mg/dL 01/16/18 08:50 LDL Cholesterol 149 mg/dL 01/16/18 08:50 HDL Cholesterol 30.0 mg/dL 01/16/18 08:50 TSH 0.98 mcIU/mL (0.34-5.60) 01/15/18 16:45 01/15/18 01/15/18 01/15/18 16:45 19:31 22:07 Troponin I 0.08 H* 0.07 H* 0.07 H* 01/16/18 08:50 Troponin I 0.08 H* Diagnostic Imagin01/14/2018 CT scan: localized dissection infrarenal abdominal aorta just above bifurcation that extends into 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 I think his conduction system disease and stable detectable troponin could be related to underlying MCTD/polymyositis which he has a history of. He does relate to me a history of exertional syncope. He does have what is described as a small dissection of the descending aorta which could be causing his pain. I reviewed his lexiscan NM stress test. The TID index was elevated by calculation but this was likely due to poor quality resting images. Qualitatively there is no TID. The stress perfusion and LVEF is normal. It is a normal stress test. He is being transferred to [facility] for a suspected connective tissue disease flare and vascular surgery consult. I would also recommend an EP consult. Avoid rate lower agents/beta- blockers for now. At this very moment he is without pain, norvasc can be used to treat his blood pressure for now. Recommendations discussed with Deanne Parson NP Thank you for allowing me to participate in the cardiovascular care of this patient. Please do not hesitate to contact me with questions or concerns.
[2018-01-16] MEDS ORDERED: Iodixanol* (CONTRAST) 320 MG/ML 100 ML SDV IV ONE (17:47)
--- NOTE | 2018-01-16 18:32 | RAD ---
STUDY: CT angiography of the chest, abdomen and pelvis. INDICATION: Chest pain in a patient reporting a type B aortic dissection. COMPARISON: CT abdomen pelvis January 14, 2018 TECHNIQUE: Multidetector CT angiography of the chest, abdomen and pelvis were obtained from the lung apices to the ischial tuberosities after the intravenous injection of 100 mL of Visipaque 320. Reformats were created in the coronal and sagittal planes. 3-D vascular imaging was created from the source images and reviewed as well. ANGIOGRAPHIC FINDINGS: There are no filling defects of the centrilobular pulmonary arteries to indicate acute pulmonary embolus. There is no pathologic dilatation of the thoracic aorta. There is no dissection of the thoracic aorta. Branch vessels off of the abdominal aorta appear adequately patent. At the infrarenal right of midline aorta is a dissection flap that extends to just above the level of the bifurcation. There is aneurysmal dilatation of the right common iliac artery measuring up to 1.3 cm in diameter unchanged in the previous radiograph. Contrast is seen filling as far as the proximal superficial femoral arteries bilaterally. NON ANGIOGRAPHIC FINDINGS: Chest: Again seen is bilateral dependent lung bases is groundglass opacification and increase in interstitial lung markings with a mild degree bronchiectatic dilatation of the airways of the dependent lower lobes. This appearance has not changed significantly since the previous CT examination. More superiorly the lungs are well aerated. There is no mediastinal or hilar lymphadenopathy. The heart is grossly normal in appearance. Abdomen & Pelvis: The liver, spleen, pancreas and adrenal glands are grossly normal in appearance. The gallbladder is normal. The kidneys are normal in appearance without focal mass, calcification or signs of hydronephrosis. The renal cortices enhance promptly and symmetrically on arterial phase imaging. There is oral contrast in the distal colon presumably from the previous CT examination. There is no oral contrast in the stomach or proximal small bowel which limits evaluation. There is wall thickening of loops of small bowel measuring up to 7 mm in diameter (for example axial image 175). There are air-fluid levels in the small bowel but no pathologic dilatation. The patient's normal appendix is identified with gas and stool in the lumen. At the upper portion of the rectum there is circumferential thickening of the colonic wall (axial image 222) measuring up to 9 mm in thickness There is no gross retroperitoneal or mesenteric lymphadenopathy. The pelvic viscera is normal in appearance. Multilevel degenerative changes of the thoracic and lumbar spine include loss of intervertebral disc height.There are no sinister bone lesions. IMPRESSION: 1. There is a small limited dissection flap in the lateral aspect of the infrarenal abdominal aorta just above the iliac bifurcation that is unchanged from the previous CT examination. Although this is a "dissection", this does not qualify as a "type B aortic dissection". There is stable mild aneurysmal dilatation of the right common iliac artery measuring 1.3 cm in diameter. 2. Again seen is interstitial density overlying the bilateral lung bases with bronchiectasis. Bronchiectasis indicates a chronic process as opposed to acute pulmonary edema or pneumonia. Please correlate to clinical features of interstitial lung disease. An alternative etiology is drug toxicity. 3. Bowel wall thickening of the proximal small bowel as well as the rectosigmoid colon without significant infiltration of the mesenteric fat or evidence of perforation. Infectious and inflammatory etiologies should be considered but classically "skip lesions" are seen in Crohn's disease.
--- NOTE | 2018-01-16 21:05 | TRS ---
TRANSFER SUMMARY: DATE OF ADMISSION: 01/15/18 DATE OF TRANSFER: 01/16/18 PROVIDER: Roshni Arteaga NP ATTENDING PHYSICIAN: Dr. Mckeon * (report dictated by Roshni Arteaga NP). DISPOSITION: Transfer to [facility] in [place], [place]. ACCEPTING PHYSICIAN: Dr. Narvaez, vascular surgeon. PRIMARY CARE PROVIDER: [facility]. TRANSFER REASON: 1. Lateral infrarenal abdominal aortic dissection just above the iliac bifurcation. 2. Cardiac conduction disorder. 3. 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 HISTORY OF PRESENT ILLNESS/HOSPITAL COURSE: Mr. Saleem is a 52-year-old incarcerated male with a past medical history of polymyositis/MCTD (connective tissue disorder), who recently underwent a workup at [facility] for abdominal pain in which he was found to have an aortic dissection, who was sent back to the retirement, who then developed worsening abdominal pain and was seen at [facility] on 01/14/18 in which he underwent an abdominal and pelvis CT, which showed "localized dissection in the infrarenal abdominal aorta just above the aortic bifurcation. 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 Bibasilar airspace disease is noted in the lung joyner, right worse than left, which may represent bibasilar pneumonia." The patient was seen only in the emergency department at that time and was sent back to [place] after the ER physician, Dr. Avilez, did discuss with neurosurgeon, Dr. Bailon, that there was no intervention to be done with this aortic dissection. The patient then returned to the emergency department the next day on 01/15/18 with complaints of abdominal pain and chest pain in which the retirement provider was concerned due to a new right bundle branch block and a left axis with trifascicular changes. The patient was sent back to the emergency department where he was found to have a troponin of 0.09 and Hospital Medicine was asked to evaluate him for admission. The patient was admitted to the telemetry unit for chest pain rule out ACS. He underwent a cardiac nuclear chemical stress test today, which I discussed with the radiologist, who had concern for an elevated transient ischemic dilatation as noted in his report; however, I discussed this with supervisor color paste mixing, Dr. Bob Yeung, who reviewed the images and states that he has a normal cardiac nuclear stress test. It is thought that the patient has cardiac conduction abnormalities on his telemetry monitoring in which Dr. Yeung reviewed and thinks that it is possible that he is having a polymyositis flare possibly involving his conduction. The patient should be evaluated by cement production plant operator. However, there is also concern due to the patient has experienced some nausea and diaphoresis with exertion, which was happening at the retirement as well as today during the chemical portion of the stress test, he became nauseous and diaphoretic. COncern that this may be secondary to the aortic dissection. I spoke with Dr. Narvaez, [facility] vascular surgeon, who has accepted the patient to his service and the patient will be transferred to [facility]. In regards to the patient's elevated troponins, his troponins were trended x4, being 0.08, 0.07, 0.07, 0.08. The patient continues to complain of some abdominal pain. He has remained hemodynamically stable with blood pressures in the 120s to 160s. The goal blood pressure should be to keep him under systolically 120. His heart rate has been noted to go as low as 40 and as high as 80. 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 No further orders per supervisor color paste mixing, Dr. Yeung, other than the patient being transferred for higher level of care. The patient was given an extra dose of Norvasc 10 mg this evening for a systolic blood pressure of 150. In recommendation of Dr. Narvaez, the patient underwent a chest, abdomen, and pelvis CTA followup this evening, which showed impression: "1. There is a small limited dissection flap in the lateral aspect of the infrarenal abdominal aorta just above the iliac bifurcation that is unchanged from the previous CT examination. Although this is a dissection, this does not qualify as a type B aortic dissection. There is stable mild aneurysmal dilatation of the right common iliac artery measuring 1.3 cm in diameter. 2. Again seen is interstitial density overlying the bilateral lung bases with bronchiectasis. Bronchiectasis indicates a chronic process as opposed to acute pulmonary edema or pneumonia. Please correlate to clinical features of interstitial lung disease. An alternative etiology is drug toxicity. 3. Bowel wall thickening of the proximal small bowel as well as the rectosigmoid colon without significant infiltration of the mesenteric fat or evidence of perforation. Infectious and inflammatory etiologies should be considered, but classically skip lesions are seen in Crohn's disease." In regards to an infectious process, the patient has no leukocytosis and other labs are unremarkable. He has a negative urinalysis. He has no cough or shortness of breath. He does have abdominal pain, but it is unclear if this is secondary to the dissection or another bowel process. He has not received any antibiotics during his hospitalization. Again, the patient remains hemodynamically stable. He was noted to have a low- grade temp in the morning of 99.0. Followup temperatures have been afebrile. 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 The patient has been on prednisone in the past for a period of time. The patient also reports that he uses a wheelchair and inhaler due to his exertional dyspnea and has passed out before with a concern for exertional syncope. This has not been observed in the hospital setting. PAST MEDICAL HISTORY: 1. Asthma. 2. Seasonal allergies. 3. GERD. 4. History of bowel obstruction in the past. 5. Polymyositis and MCTD for which he was on prednisone for a period of time; possible involvement of cardiac, pulmonary, GI. PAST SURGICAL HISTORY: 1. Abdominal surgery in 2016. 2. History of left hip surgery. ALLERGIES: No known drug allergies. DISCHARGE MEDICATIONS: 1. Acetaminophen 650 mg p.o. q.4 hours p.r.n. 2. Albuterol 2.5 mg/3 mL nebulizer q.4 hours while awake p.r.n. 3. Zyrtec 10 mg p.o. daily. 4. Pepcid 20 mg p.o. daily. 5. Milk of magnesia 30 mL p.o. q.4 hours p.r.n. 6. Reglan 10 mg p.o. t.i.d. p.r.n. 7. Albuterol 2 puffs INH b.i.d. 8. Morphine sulfate 2 mg IV q.4 hours p.r.n. 9. Nitroglycerin 0.4 mg sublingual q.5 minutes p.r.n. 10. Omeprazole 20 mg p.o. b.i.d. 11. Zofran 4 mg IV q.4 hours p.r.n. HOME MEDICATIONS: 1. Zantac 1 tab p.o. daily. 2. Simethicone 1 tab p.o. t.i.d. 3. Omeprazole 20 mg p.o. b.i.d. 4. Reglan 10 mg p.o. t.i.d. p.r.n. 5. Glucose oral p.r.n. 6. Zyrtec 10 mg p.o. b.i.d. 7. FiberCon 1 tab p.o. b.i.d. 8. Vitamin D3 one cap p.o. daily. 9. Advair HFA 115/21 one puff INH b.i.d. FAMILY HISTORY: Hypertension, coronary artery disease. SOCIAL HISTORY: The patient is an inmate who [facility]. He lists his mother, Elza Saleem, as his healthcare proxy. He wishes to be a full code. He denies tobacco abuse, alcohol use, or illicit drug abuse. DIAGNOSTIC STUDIES: EKG, 01/14/18, normal sinus rhythm with a right bundle branch block with a left axis deviation noted, PVCs, first-degree AV noted. EKG, 01/15/18, normal sinus rhythm, right bundle branch block with a left axis deviation, non-conducted PACs, several non-conducted P waves which appear to be from the sinus node. EKG in 2012, normal sinus rhythm, early repolarization in V2, V3, otherwise unremarkable. TRANSFER PLAN: The patient will be transferred to [facility]. Dr. Narvaez, vascular surgeon, has accepted his care. Recommend that he follows up with an commercial marketing specialist for the conduction abnormality. It is understood this patient was at [facility] previously for an evaluation and we do not have those medical records. On discharge, the patient is stable. He will require ALS EMS transport. TIME SPENT: Ninety minutes was spent on this transfer. This case was discussed with attending physician, Dr. Mckeon, who agrees with the plan of care, as well as supervisor color paste mixing, Dr. Yeung. ROSHNI ARTEAGA, DISASTER RECOVERY SPECIALIST [id number]/[facility] #: [id number] [facility]
== END 2018-01-16 19:46 | disposition short-term general hospital (02) ==
LOC: ED 16:21 → MEDTELE 19:43 → EEVIPCON 19:43
PROVIDERS: ADMIT Pediatrics; ATTEND Pediatrics
DX: R07.9 Chest pain, unspecified (principal); R94.31 Abnormal electrocardiogram [ECG] [EKG]; K21.9 Gastro-esophageal reflux disease without esophagitis; R10.13 Epigastric pain; J45.909 Unspecified asthma, uncomplicated; Z79.899 Other long term (current) drug therapy; K31.84 Gastroparesis; K56.609 Unspecified intestinal obstruction, unspecified as to partial versus complete obstruction; E11.9 Type 2 diabetes mellitus without complications; I10 Essential (primary) hypertension; E78.5 Hyperlipidemia, unspecified; Z86.12 Personal history of poliomyelitis
CPT/HCPCS: 36415; 71045; 71275; 74174; 78452; 80048; 80053; 80061; 81003; 81015; 82550; 82553; 83605; 83735; 83880; 84443; 84484; 85025; 87086; 93005; 93017; 94640; 96360; 99285; A9270-GY; A9502; G0378; J2785; Q9967